=== PATIENT | male | born 1980 | race Hispanic/Latino ===

== ENCOUNTER 2016-11-06 01:34 | Emergency (ER) | payer MEDICARE, OTHER ==
[2016-11-06 01:35] VITALS: BMI 27.1
[2016-11-06 01:53] VITALS: TEMP 98.6
--- NOTE | 2016-11-06 02:08 | ED PDOC ---
Arrival/HPI <WendieOscar - Last Filed: 11/06/16 04:01> <Sandoval Muir - Last Filed: 11/06/16 04:19> - General Chief Complaint: Anxiety Time Seen by Provider: 11/06/16 01:40 - History of Present Illness Narrative History of Present Illness (Text): 11/06/16 02:06 This patient is a 36yo M w/ a PMhx of DM, Bipolar I disorder who is coming to the hospital with chest discomfort since 1am today. Patient states he was not doing anything particular, but started to get extremely anxious and "felt like he was having a heart attack" even though he has never had one in the past. Also states his left thumb went numb although it intermittently goes numb and he is unsure if they are related. Denies any fevers/chills, [place], current chest pain, SOB, abdominal pain, palpitations, N/V/D, feeling of impending doom, dysuria/freq/urg, or lower extremity pain/swelling. States he feels very anxious with all the the sounds in the ER. denies wish to hurt self or others. denies hearing voices. (Sandoval Muir) Past Medical History - Provider Review Nursing Documentation Reviewed: Yes - Travel History Have you recently traveled outside [place] w/in the past 3 mons?: No - Infectious Disease Hx of Infectious Diseases: None - Tetanus Immunization Tetanus Immunization: Unknown - Cardiac Hx Cardiac Disorders: No - Pulmonary Hx Respiratory Disorders: No - Neurological Hx Neurological Disorder: Yes Hx Seizures: Yes - HEENT Hx HEENT Disorder: No Other/Comment: astigmatism - Renal Hx Renal Disorder: No - Endocrine/Metabolic Hx Endocrine Disorders: No Hx Diabetes Mellitus Type 2: Yes - Hematological/Oncological Hx Blood Disorders: No - Integumentary Hx Dermatological Disorder: Yes Other/Comment: very minimal skin dryness and redness on both hands.. pt. claimed. side effecs of lamictal.. - Musculoskeletal/Rheumatological Hx Musculoskeletal Disorders: No Hx Falls: No - Gastrointestinal Hx Gastrointestinal Disorders: No - Genitourinary/Gynecological Hx Genitourinary Disorders: No Hx Reproductive Disorders: No - Psychiatric Hx Anxiety: Yes Hx Bipolar Disorder: Yes Hx Depression: Yes Hx Emotional Abuse: No Hx Physical Abuse: No Hx Schizophrenia: Yes Hx Substance Use: No - Past Surgical History Past Surgical History: No Previous - Surgical History Hx Appendectomy: Yes Hx Cholecystectomy: Yes - Anesthesia Hx Anesthesia Reactions: No Hx Malignant Hyperthermia: No - Suicidal Assessment Feels Threatened In Home Enviroment: No <Sandoval Muir - Last Filed: 11/06/16 04:19> Family/Social History - Physician Review Nursing Documentation Reviewed: Yes Family/Social History: No Known Family HX Smoking Status: Never Smoked Hx Alcohol Use: No Hx Substance Use: No Hx Substance Use Treatment: No <Sandoval Muir - Last Filed: 11/06/16 04:19> Allergies/Home Meds <Oscar Zuleta - Last Filed: 11/06/16 04:01> <Sandoval Muir - Last Filed: 11/06/16 04:19> Allergies/Adverse Reactions: Allergies lithium Allergy (Verified 11/06/16 01:55) ANAPHYLAXIS manic topiramate Allergy (Verified 11/06/16 02:07) ANAPHYLAXIS Home Medications: Home Meds Medication Instructions Recorded Confirmed Divalproex [Depakote ER] 500 mg PO 10/09/12 11/06/16 Benztropine [Benztropine Mesylate] 2 mg PO 11/06/16 Benztropine [Cogentin] 2 mg PO 11/06/16 11/06/16 Escitalopram [Lexapro] 40 mg PO DAILY 11/06/16 11/06/16 MetFORMIN [glucoPHAGE] 1,000 mg PO 11/06/16 11/06/16 metFORMIN [glucOPHAGE] 500 mg PO 11/06/16 11/06/16 Review of Systems - Physician Review All systems were reviewed & negative as marked: Yes - Review of Systems Constitutional: absent: Fatigue, Weight Change Eyes: absent: Vision Changes, Photophobia ENT: absent: Hearing Changes Respiratory: absent: SOB, Cough Cardiovascular: Chest Pain. absent: Palpitations, Edema, Calf Pain, ENCARNACION, Orthopnea, Syncope Gastrointestinal: absent: Abdominal Pain, Stool Changes Genitourinary Male: absent: Dysuria, Frequency Musculoskeletal: absent: Arthralgias Skin: absent: Rash, Pruritis Neurological: absent: Headache, Dizziness Endocrine: absent: Diaphoresis Hemo/Lymphatic: absent: Adenopathy Psychiatric: Anxiety. absent: Depression, Suicidal Ideation <Sandoval Muir - Last Filed: 11/06/16 04:19> Physical Exam Temperature: Afebrile Blood Pressure: Normal Pulse: Regular Respiratory Rate: Normal Appearance: Positive for: Well-Appearing, Non-Toxic, Comfortable Pain Distress: None Mental Status: Positive for: Alert and Oriented X 3 (does not make good eye contact) - Systems Exam Head: Present: Atraumatic Pupils: Present: PERRL Extroacular Muscles: Present: EOMI Conjunctiva: Present: Normal Mouth: Present: Moist Mucous Membranes Pharnyx: Present: Normal. No: ERYTHEMA Nose (External): Present: Atraumatic Neck: Present: Normal Range of Motion. No: Meningeal Signs Respiratory/Chest: Present: Clear to Auscultation, Good Air Exchange. No: Respiratory Distress Cardiovascular: Present: Regular Rate and Rhythm, Normal S1, S2, Peripheal Pulses Present. No: Murmurs, Irregular Rhythm, Tachycardic, Bradycardic, Rub, Gallop, Muffled, Other Abdomen: Present: Normal Bowel Sounds. No: Tenderness, Distention, Peritoneal Signs Back: Present: Normal Inspection. No: CVA Tenderness Upper Extremity: Present: Normal Inspection. No: Cyanosis, Edema Lower Extremity: Present: Normal Inspection. No: Edema, CALF TENDERNESS Neurological: Present: GCS=15, CN II-XII Intact, Speech Normal Skin: Present: Warm <Sandoval Muir - Last Filed: 11/06/16 04:19> Vital Signs Temp Pulse Resp BP Pulse Ox 11/06/16 01:50 98.6 F 73 17 127/70 96 Medical Decision Making <Oscar Zuleta - Last Filed: 11/06/16 04:01> <Sandoval Muir - Last Filed: 11/06/16 04:19> ED Course and Treatment: In agreement with resident note which contains more details about the patient. Patient was seen and evaluated with resident. Came up with plan and treatment together. Patient is a 36 year old male who presents to the emergency department complaining of chest pain since 1am today. Will order EKG, labs and troponin to rule out ACS and cardiac etiologies. Troponin negative. States that symptoms are better and feels comfortable to be discharged home. Patient is stable for discharge. Advised to present to emergency department for new/worsening symptoms and f/u with pmd within few days. (Oscar Zuleta) 11/06/16 02:05 EKG is NSR, no ST Segment elevations or depressions Will order CBC CMP Cardiac Enzymes Will give Aspirin 325, Xanax .5mg Only risk factor is Diabetes, does NOT have HTN, family history, smoking history patient states he feels extremely anxious right now, and is extremely anxious to be out of the house as well Reassess and dispo 11/06/16 03:54 Chemistry and CBC WNL Pending Troponins patient feels better after aspirin and xanax 11/06/16 03:57 Troponin is negative patient feels better 11/06/16 04:15 The patient is stable for d/c as per dr zuleta he has been advised to follow up if he has any worsening chest pain, shortness of breath and he was educated for warning signs of worrisome chest pain and other symptoms all questions answered and education given (Sandoval Muir) - Lab Interpretations Lab Results: 11/06/16 03:15 11/06/16 03:15 Lab Results 11/06/16 03:15: Sodium 138, Potassium 4.1, Chloride 100, Carbon Dioxide 26, Anion Gap 16, BUN 10, Creatinine 0.7, Est GFR ( Amer) > 60, Est GFR (Non- Af Amer) > 60, Random Glucose 99, Calcium 9.5, Total Bilirubin 0.4, AST 42, ALT 53, Alkaline Phosphatase 74, Lactate Dehydrogenase 349, Total Creatine Kinase 123, Troponin I < 0.01, Total Protein 7.0, Albumin 4.1, Globulin 2.9, Albumin/ Globulin Ratio 1.4 11/06/16 03:15: WBC 11.0, RBC 4.32, Hgb 12.3 L, Hct 36.4 L, MCV 84.3, MCH 28.5, MCHC 33.8, RDW 13.7, Plt Count 243, MPV 9.0, Gran % 63.4, Lymph % (Auto) 27.9, [place] % (Auto) 6.9 H, Eos % (Auto) 1.6, Baso % (Auto) 0.2, Gran # 6.99 H, Lymph # 3.1, [place] # 0.8 H, Eos # 0.2, Baso # 0.02 - Medication Orders Current Medication Orders: Discontinued Medications Alprazolam (Xanax) 0.5 mg PO STAT STA PRN Reason: Protocol Stop: 11/06/16 02:09 Last Admin: 11/06/16 03:01 Dose: 0.5 mg Comments: scanner not working Aspirin (Aspirin) 325 mg PO STAT STA Stop: 11/06/16 02:09 Last Admin: 11/06/16 03:01 Dose: 325 mg Comments: scanner not working - PA / FURNITURE DIPPER / Resident Statement MD/DO has reviewed & agrees with the documentation as recorded. MD/ has examined the patient and agrees with the treatment plan. <Oscar Zuleta - Last Filed: 11/06/16 04:01> <Sandoval Muir - Last Filed: 11/06/16 04:19> - Scribe Statement Lawanda Childers Provider Scribe Attestation: All medical record entries made by the Scribe were at my direction and personally dictated by me. I have reviewed the chart and agree that the record accurately reflects my personal performance of the history, physical exam, medical decision making, and the department course for this patient. I have also personally directed, reviewed, and agree with the discharge instructions and disposition. (Oscar Zuleta) Disposition/Present on Arrival <Oscar Zuleta - Last Filed: 11/06/16 04:01> - Present on Arrival Any Indicators Present on Arrival: No History of DVT/PE: No History of Uncontrolled Diabetes: No Urinary Catheter: No History of Decub. Ulcer: No History Surgical Site Infection Following: None - Disposition Have Diagnosis and Disposition been Completed?: Yes Disposition Time: 04:14 Patient Plan: Discharge <Sandoval Muir - Last Filed: 11/06/16 04:19> - Disposition Diagnosis: Anxiety Disposition: HOME/ ROUTINE Condition: FAIR Discharge Instructions (ExitCare): Anxiety (ED)
[2016-11-06 03:34] LABS: BASO # 0.02 K/mm3 (0.0-2.0); BASO % 0.2 % (0.0-3.0); EOS # 0.2 (0.0-0.7); EOS % 1.6 % (1.5-5.0); GRAN # 6.99 (1.4-6.5); GRAN % 63.4 % (50.0-68.0); HEMOGLOBIN 12.3 gm/dL (14.0-18.0); LYMPH # 3.1 (1.2-3.4); LYMPH % 27.9 % (22.0-35.0); MEAN CELL VOLUME 84.3 fL (80.0-105.0); MEAN CORPUSCULAR HEMOGLOBIN 28.5 pg (25.0-35.0); MEAN CORPUSCULAR HGB CONC 33.8 g/dl (31.0-37.0); MONO # 0.8 (0.1-0.6); MONO % 6.9 % (1.0-6.0); PLATELET COUNT 243 10^3/uL (120.0-450.0); RBC 4.32 10^6/uL (3.5-6.1); RED CELL DISTRIBUTION WIDTH 13.7 % (11.5-14.5)
[2016-11-06 03:47] LABS: ALB/GLOB RATIO 1.4 (1.1-1.8); ALBUMIN 4.1 g/dL (3.0-4.8); ALT/SGPT 53 U/L (7-56); AST/SGOT 42 U/L (15-59); BLOOD UREA NITROGEN 10 mg/dL (7-21); CALCIUM 9.5 mg/dL (8.4-10.5); GFR AFRICAN-AMERICAN > 60; GFR NON-AFRICAN AMERICAN > 60
[2016-11-06 03:54] LABS: TROPONIN I < 0.01 ng/mL
[2016-11-06 05:00] VITALS: BP 128/78; PULSE 79; RESP 16; O2SAT 99
--- NOTE | 2016-11-06 16:47 | CARD ---
APPROVED REPORT EKG Measurement Heart [id number] <Conclusion> Normal sinus rhythm Possible Left atrial enlargement Borderline ECG
== END 2016-11-06 04:30 | disposition home or self-care (01) ==
LOC: ED 01:34
DX: F41.9 Anxiety disorder, unspecified (principal)

== ENCOUNTER 2016-12-18 19:52 | Inpatient (IN) | payer MEDICARE, OTHER ==
[2016-12-18 19:53] VITALS: BMI 27.1
[2016-12-18] MEDS ORDERED: Sodium Chloride 0.9% 1,000 ML IV STA (20:08)
--- NOTE | 2016-12-18 20:11 | ED PDOC ---
Arrival/HPI - General Chief Complaint: Syncope Time Seen by Provider: 12/18/16 20:00 Historian: Patient, Parent - History of Present Illness Narrative History of Present Illness (Text): 12/18/16 20:08 Pt. to emergency depaP Bipolar Disorder,NIDDM, to emergency department BIBA following a syncopal episode at home.Pt. states he has been having diarrhea for the past few days.No vomiting.No fever or chills.Denies any chest pain or shortness of breath.Mother states he was walking to the kitchen when he suddenly collapsed.No head trauma.Denies any neck or back pain. Past Medical History - Provider Review Nursing Documentation Reviewed: Yes - Travel History Have you recently traveled outside [place] w/in the past 3 mons?: No - Infectious Disease Hx of Infectious Diseases: None - Tetanus Immunization Tetanus Immunization: Unknown - Cardiac Hx Cardiac Disorders: No - Pulmonary Hx Respiratory Disorders: No - Neurological Hx Neurological Disorder: Yes Hx Seizures: Yes - HEENT Hx HEENT Disorder: No Other/Comment: astigmatism - Renal Hx Renal Disorder: No - Endocrine/Metabolic Hx Endocrine Disorders: No Hx Diabetes Mellitus Type 2: Yes - Hematological/Oncological Hx Blood Disorders: No - Integumentary Hx Dermatological Disorder: Yes Other/Comment: very minimal skin dryness and redness on both hands.. pt. claimed. side effecs of lamictal.. - Musculoskeletal/Rheumatological Hx Musculoskeletal Disorders: No Hx Falls: No - Gastrointestinal Hx Gastrointestinal Disorders: No - Genitourinary/Gynecological Hx Genitourinary Disorders: No Hx Reproductive Disorders: No - Psychiatric Hx Anxiety: Yes Hx Bipolar Disorder: Yes Hx Depression: Yes Hx Emotional Abuse: No Hx Physical Abuse: No Hx Schizophrenia: Yes Hx Substance Use: No - Past Surgical History Past Surgical History: No Previous - Surgical History Hx Appendectomy: Yes Hx Cholecystectomy: Yes - Anesthesia Hx Anesthesia Reactions: No Hx Malignant Hyperthermia: No - Suicidal Assessment Feels Threatened In Home Enviroment: No Family/Social History - Physician Review Nursing Documentation Reviewed: Yes Family/Social History: Diabetes Smoking Status: Never Smoked Hx Alcohol Use: No Hx Substance Use: No Hx Substance Use Treatment: No Allergies/Home Meds Allergies/Adverse Reactions: Allergies lithium Allergy (Verified 12/18/16 20:43) ANAPHYLAXIS manic topiramate Allergy (Verified 12/18/16 20:43) ANAPHYLAXIS Home Medications: Home Meds Medication Instructions Recorded Confirmed Divalproex [Depakote ER] 500 mg PO HS 10/09/12 12/18/16 Benztropine [Benztropine Mesylate] 2 mg PO DAILY 11/06/16 12/18/16 Benztropine [Cogentin] 2 mg PO 11/06/16 12/18/16 Escitalopram [Lexapro] 40 mg PO DAILY 11/06/16 12/18/16 MetFORMIN [glucoPHAGE] 1,000 mg PO 11/06/16 12/18/16 metFORMIN [glucOPHAGE] 500 mg PO 11/06/16 12/18/16 Review of Systems - Review of Systems Constitutional: Normal Eyes: Normal ENT: Normal Respiratory: Normal Cardiovascular: Normal Gastrointestinal: Normal Genitourinary Male: Normal Musculoskeletal: Normal Skin: Normal Neurological: Other (syncope) Endocrine: Normal Hemo/Lymphatic: Normal Psychiatric: Normal Physical Exam Vital Signs Pulse Resp BP Pulse Ox 12/18/16 23:06 80 20 116/70 98 12/18/16 22:41 87 17 91/50 L 100 Temperature: Afebrile Blood Pressure: Normal Pulse: Regular Respiratory Rate: Normal Appearance: Positive for: Well-Appearing, Non-Toxic, Comfortable Pain Distress: None Mental Status: Positive for: Alert and Oriented X 3 - Systems Exam Head: Present: Atraumatic, Normocephalic Pupils: Present: PERRL Extroacular Muscles: Present: EOMI Conjunctiva: Present: Normal Ears: Present: NORMAL TM Mouth: Present: Moist Mucous Membranes Pharnyx: Present: Normal Neck: Present: Normal Range of Motion Respiratory/Chest: Present: Clear to Auscultation, Good Air Exchange. No: Respiratory Distress, Accessory Muscle Use Cardiovascular: Present: Regular Rate and Rhythm, Normal S1, S2. No: Murmurs Abdomen: Present: Normal Bowel Sounds. No: Tenderness, Distention, Peritoneal Signs Back: Present: Normal Inspection Upper Extremity: Present: Normal Inspection. No: Cyanosis, Edema Lower Extremity: Present: Normal Inspection. No: Edema Neurological: Present: GCS=15, CN II-XII Intact, Speech Normal, Motor Func Grossly Intact, Normal Sensory Function Skin: Present: Warm, Dry, Normal Color. No: Rashes Psychiatric: Present: Alert, Oriented x 3, Normal Insight, Normal Concentration Medical Decision Making ED Course and Treatment: Impression: A 36 year old male who presents to the emergency department for evaluation following a syncopal episode prior to arrival. Plan: -- EKG -- Labs, cardiac enzymes -- CT Head -- CXR -- IV Fluids -- Reassess and disposition Progress Notes: CT Head shows: No definitive acute intracranial abnormality. CXR interpreted by me: No acute processes EKG interpreted by me: NSR @ 76 bpm. wavy baseline. non-specific ST/T changes. 12/18/16 23:26 Case discussed with who is aware and agrees with the plan to observe patient at telemetry for syncope. Accepts patient under her service with and Dr. Coker on consult. Patient is aware and agrees with the plan. - Lab Interpretations Lab Results: 12/18/16 22:00 12/18/16 22:00 Lab Results 12/18/16 22:00: WBC 12.4 H, RBC 4.94, Hgb 14.3, Hct 41.9 L, MCV 84.8, MCH 28.9, MCHC 34.1, RDW 14.1, Plt Count 249, MPV 9.8 12/18/16 22:00: Sodium 141, Potassium 4.2, Chloride 104, Carbon Dioxide 24, Anion Gap 17, BUN 11, Creatinine 0.7, Est GFR ( Amer) > 60, Est GFR (Non- Af Amer) > 60, Random Glucose 104, Calcium 9.9, Total Bilirubin 0.6, AST 98 H, ALT 161 H, Alkaline Phosphatase 103, Lactate Dehydrogenase 469, Total Creatine Kinase 62, Troponin I < 0.01, Total Protein 7.6, Albumin 4.5, Globulin 3.1, Albumin/Globulin Ratio 1.5 12/18/16 22:00: PT 10.2, INR 0.94, APTT 26.0 I have reviewed the lab results: Yes - RAD Interpretation Narrative RAD Interpretations (Text): EXAM: CT Head Without Intravenous Contrast Dictated and Authenticated by: Jemal Capone MD FINDINGS: Artifacts: There is motion artifact on the study. There is a focus of increased density involving the left frontal cortex on series 5 image 20. This is likely artifactual. Brain: The white-musa differentiation is preserved demonstrating no acute territorial type infarct. No definitive acute intracranial hemorrhage is seen. There are calcifications within the globus pallidus bilaterally, which are likely physiologic. Midline shift: There is no midline shift. Ventricles: No ventriculomegaly. Bones/joints: The calvarium demonstrates no evidence for a depressed fracture. Soft tissues: No acute abnormality. Sinuses: Unremarkable as visualized. No acute sinusitis. Mastoid air cells: No mastoid effusion. IMPRESSION: 1. No definitive acute intracranial abnormality. 2. Incidental/non-acute findings are described above. Radiology Orders: 12/18/16 20:06 HEAD W/O CONTRAST [CT] Stat 12/18/16 20:07 CHEST PORTABLE [RAD] Stat Watch Assembly Instructor: Radiologist - Medication Orders Current Medication Orders: Discontinued Medications Sodium Chloride (Sodium Chloride 0.9%) 1,000 mls @ 999 mls/hr IV .Q1H1M STA Stop: 12/18/16 21:08 Disposition/Present on Arrival - Present on Arrival Any Indicators Present on Arrival: No History of DVT/PE: No History of Uncontrolled Diabetes: No Urinary Catheter: No History of Decub. Ulcer: No History Surgical Site Infection Following: None - Disposition Have Diagnosis and Disposition been Completed?: Yes Diagnosis: Syncope Disposition: HOSPITALIZED Disposition Time: 23:15 Patient Plan: Observation Patient Problems: Current Active Problems Problem Status Onset Syncope Acute Condition: STABLE
[2016-12-18 22:27] LABS: HEMATOCRIT 41.9 % (42.0-52.0); MEAN CELL VOLUME 84.8 fl (80.0-105.0); MEAN CORPUSCULAR HEMOGLOBIN 28.9 pg (25.0-35.0); MEAN CORPUSCULAR HGB CONC 34.1 g/dl (31.0-37.0); MEAN PLATELET VOLUME 9.8 fl (7.0-11.0); RED CELL DISTRIBUTION WIDTH 14.1 % (11.5-14.5); WHITE BLOOD COUNT 12.4 10^3/ul (4.5-11.0)
[2016-12-18 22:36] LABS: ALB/GLOB RATIO 1.5 (1.1-1.8); ALKALINE PHOSPHATASE 103 U/L (38-126); ALT/SGPT 161 U/L (7-56); AST/SGOT 98 U/L (17-59); BILIRUBIN,TOTAL 0.6 mg/dL (0.2-1.3); BLOOD UREA NITROGEN 11 mg/dL (7-21); CALCIUM 9.9 mg/dL (8.4-10.5); CARBON DIOXIDE 24 mmol/L (21-33); CHLORIDE 104 mmol/L (98-107); GFR AFRICAN-AMERICAN > 60; GLUCOSE,RANDOM 104 mg/dL (70-110); POTASSIUM 4.2 mmol/L (3.6-5.0); SODIUM 141 mmol/L (132-148); TOTAL PROTEIN 7.6 g/dL (5.8-8.3)
[2016-12-18 22:37] LABS: INR 0.94 (0.93-1.08)
--- NOTE | 2016-12-18 22:38 | CT ---
EXAM: CT Head Without Intravenous Contrast EXAM DATE/TIME: 12/18/2016 8:06 PM CLINICAL HISTORY: The patient age is 36 years old and is male; Signs and symptoms; Syncope and collapse Facility exam id and description: Ct heads head w/o contrast TECHNIQUE: Axial computed tomography images of the head/brain without intravenous contrast. All CT scans at this facility use one or more dose reduction techniques, viz.: automated exposure control; ma/kV adjustment per patient size (including targeted exams where dose is matched to indication; i.e. head); or iterative reconstruction technique. COMPARISON: No relevant prior studies available. FINDINGS: Artifacts: There is motion artifact on the study. There is a focus of increased density involving the left frontal cortex on series 5 image 20. This is likely artifactual. Brain: The white-musa differentiation is preserved demonstrating no acute territorial type infarct. No definitive acute intracranial hemorrhage is seen. There are calcifications within the globus pallidus bilaterally, which are likely physiologic. Midline shift: There is no midline shift. Ventricles: No ventriculomegaly. Bones/joints: The calvarium demonstrates no evidence for a depressed fracture. Soft tissues: No acute abnormality. Sinuses: Unremarkable as visualized. No acute sinusitis. Mastoid air cells: No mastoid effusion. IMPRESSION: 1. No definitive acute intracranial abnormality. 2. Incidental/non-acute findings are described above.
[2016-12-18 22:47] LABS: TROPONIN I < 0.01 ng/mL
[2016-12-19] MEDS ORDERED: Bismuth Subsalicylate 262 mg/15 ml Sus (240 ml) PO ONE (02:08)
--- NOTE | 2016-12-19 02:11 | CP.PCM.PN ---
Subjective - Date & Time of Evaluation Date of Evaluation: 12/19/16 Time of Evaluation: 02:09 - Subjective Subjective: Patient was seen at bedside because he requested something for sleep and diarrhoea. Has no other complaints. Denies abdominal pain, vomiting. Medical record was reviewed. This 36 year old male was admitted after he had a syncopal episode.Also has been having diarrhoea for past few days. Has PMH of NIDDM, bipolar disorder, seizure, anxiety, schizophrenia, appendectomy, cholecystectomy. Objective - Vital Signs/Intake and Output Vital Signs (last 24 hours): Temp Pulse Resp BP Pulse Ox 98.1 F 71 18 120/89 99 12/19/16 01:17 12/19/16 01:17 12/19/16 01:35 12/19/16 01:17 12/19/16 01:35 - Medications Medications: Current Medications Bismuth Subsalicylate (Pepto-Bismol) 262 mg PO ONCE ONE Stop: 12/19/16 02:09 Diphenhydramine HCl (Benadryl) 25 mg PO STAT STA Stop: 12/19/16 02:08 - Labs Labs: PT 10.2 Seconds (9.9-11.8) 12/18/16 22:00 INR 0.94 (0.93-1.08) 12/18/16 22:00 APTT 26.0 Seconds (23.7-30.8) 12/18/16 22:00 - Constitutional Appears: Well, No Acute Distress - Head Exam Head Exam: ATRAUMATIC, NORMAL INSPECTION, NORMOCEPHALIC - Eye Exam Eye Exam: Normal appearance - ENT Exam ENT Exam: Normal External Ear Exam - Neck Exam Neck Exam: Normal Inspection - Respiratory Exam Respiratory Exam: NORMAL BREATHING PATTERN - Cardiovascular Exam Cardiovascular Exam: absent: JVD - GI/Abdominal Exam GI & Abdominal Exam: absent: Distended - Rectal Exam Rectal Exam: Deferred - Exam Additional comments: Deferred. - Extremities Exam Extremities Exam: Normal Inspection - Back Exam Back Exam: NORMAL INSPECTION - Neurological Exam Neurological Exam: Alert, Oriented x3 - Psychiatric Exam Psychiatric exam: Normal Affect, Normal Mood - Skin Skin Exam: Normal Color Assessment and Plan - Assessment and Plan (Free Text) Assessment: Adustment insomnia. Diarrhoea. NIDDM. Depression. Schizophrenia. Anxiety. History of seizure. Obesity. Plan: Kappectate 30 CC po stat. Benadryl 50 mg PO stat. Continue present management.
--- NOTE | 2016-12-19 08:51 | RAD ---
HISTORY: syncope COMPARISON: 01/06/2013 FINDINGS: LUNGS: No active pulmonary disease. PLEURA: No significant pleural effusion identified, no pneumothorax apparent. CARDIOVASCULAR: Normal. OSSEOUS STRUCTURES: No significant abnormalities. VISUALIZED UPPER ABDOMEN: Normal. OTHER FINDINGS: None. IMPRESSION: No active disease. No interval pathology noted
--- NOTE | 2016-12-19 11:16 | CON ---
DATE: 12/19/2016 REASON FOR CONSULTATION: Syncope, cardiac evaluation. BRIEF CLINICAL HISTORY: This is a 36-year-old male with a past medical history significant for psychiatric disorder, bipolar disorder, depression, schizophrenia, admitted to the [facility] after syncopal episode at home. The patient states that he has had diarrhea for five days and not eating since two to three days. Yesterday, he had yogurt for the lunch only and when he was going to the bedroom to kitchen to have a dinner with mom suddenly he passed out. Denies any chest pain or shortness of breath or any palpitation. PAST MEDICAL HISTORY: Significant for history of psychiatric disorder, bipolar disorder, schizophrenia, questionable history of grand mal seizure in 2012. PERSONAL HISTORY: Unmarried. No children. Live with mom. Denies smoking. Denies any history of alcohol abuse. He is on disability. CURRENT MEDICATIONS: The patient is taking at home metformin 5 mg daily, Lexapro, Depakote, Cogentin, and benztropine. REVIEW OF SYSTEMS: As per HPI. PHYSICAL EXAMINATION VITAL SIGNS: Temperature afebrile, heart rate 20, blood pressure 117/63. HEENT: PERRLA. Extraocular muscles intact. NECK: Supple. No carotid bruits. No thyromegaly. CHEST: Clear to auscultation. HEART: S1 and S2 and regular. ABDOMEN: Soft. EXTREMITIES: Clubbing, cyanosis negative. LABORATORY DATA: EKG showed normal sinus rate of 78, left atrial abnormality. Blood workup shows WBC 12.4, hemoglobin 19.3, hematocrit 41.9, platelet count 249. Chemistries show sodium 141, potassium 4.2, chloride 104, carbon dioxide 24, anion gap of 11, BUN of 17, creatinine of 0.7. Troponin is 0.01 x2 negative. IMPRESSION: This is a 36-year-old male with past medical history significant for obesity, diabetes, psychiatric disorder, bipolar disorder, questionable history of grand mal seizure, history of schizophrenia who had a diarrhea for five days, not eating, doing probably most likely secondary to orthostatic hypotension, admitted with syncopal episode most likely secondary to dehydration. RECOMMENDATION: Start IV fluids 100 mL of normal saline for 1 liter followed by 50 mL of normal saline from 7 p.m. We will check orthostatic hypotension. We will get echo to rule out structural heart disease. We will get lipid profile, TSH, and hemoglobin A1c. Also we will add on magnesium level. We will follow with you. Thank you Dr. Felipe for providing the opportunity in taking care of Simón Benson and also get echo to rule out his structural heart disease. We will order postural hypotension and will check for orthostatic hypotension. So far no evidence of acute CO or coronary event. Michelle Coker MD
[2016-12-19] MEDS: Insulin Reg-LOW-Coverage SC SCH ×3 (11:30→21:53)
[2016-12-19] MEDS: Sodium Chloride 0.9% 1,000 ML IV SCH ×4 (11:50→21:57)
--- NOTE | 2016-12-19 12:07 | CP.PCM.CON ---
<[facility] - Last Filed: 12/19/16 13:49> History of Present Illness - History of Present Illness History of Present Illness: GI consult note: 36 M with pmh of schizophrenia, bipolar, and depression presents following a syncopal episode. He states that he remembers going to get a yogurt from his kitchen which he than passed out. He also states that for the past 5 days he has been having poor oral intake and 3-4 episodes of non bloody diarrhea per day. Pt states state that he ate out a few days ago and its possible his symptoms are attributed to that. He states that food makes the diarrhea worse. Pt denies this ever occurring before. No recent travels. No sick contacts. Pt denies any fever, chills, headache, dizziness, sob, chest pain, abd pain, nausea , vomiting, urinary changes. 12 Point ROS was performed and is negative other than stated above. PMH: Psych hx including schizophrenia, bipolar, depression PSH: cholecystectomy ALL: [place], Topiramate, Geodon FH: denies SH: not and lives with his mom; Denies any drinking, smoking, or drugs Endo hx: denies Review of Systems - Review of Systems All systems: reviewed and no additional remarkable complaints except Past Patient History - Infectious Disease Hx of Infectious Diseases: None - Tetanus Immunizations Tetanus Immunization: Unknown - Past Social History Smoking Status: Never Smoked - CARDIAC Hx Hypertension: No (Hypotension) - PULMONARY Hx Respiratory Disorders: No - NEUROLOGICAL Hx Seizures: Yes (Grand mal seizure in 2013) - HEENT Hx HEENT Problems: No Other/Comment: astigmatism - RENAL Hx Chronic Kidney Disease: No - ENDOCRINE/METABOLIC Hx Diabetes Mellitus Type 2: Yes - HEMATOLOGICAL/ONCOLOGICAL Hx Blood Disorders: No - INTEGUMENTARY Hx Dermatological Problems: Yes Other/Comment: very minimal skin dryness and redness on both hands.. pt. claimed. side effecs of lamictal.. - MUSCULOSKELETAL/RHEUMATOLOGICAL Hx Falls: Yes (Passed out at home) - GASTROINTESTINAL Hx Gastrointestinal Disorders: No - GENITOURINARY/GYNECOLOGICAL Hx Genitourinary Disorders: No Hx Reproductive Disorders: No - PSYCHIATRIC Hx Psychophysiologic Disorder: Yes (Failure to thrive, OCD) Hx Anxiety: Yes Hx Bipolar Disorder: Yes Hx Depression: Yes Hx Schizophrenia: Yes - SURGICAL HISTORY Hx Appendectomy: Yes - ANESTHESIA Hx Anesthesia Reactions: No Hx Malignant Hyperthermia: No Meds Allergies/Adverse Reactions: Allergies Allergy/AdvReac Type Severity Reaction Status Date / Time lithium Allergy ANAPHYLAXIS Verified 12/18/16 20:43 topiramate Allergy ANAPHYLAXIS Verified 12/18/16 20:43 - Medications Medications: Current Medications Benztropine Mesylate (Cogentin) 2 mg PO DAILY [facility] Last Admin: 12/19/16 11:52 Dose: 2 mg Divalproex Sodium (Depakote Er(Once Daily)) 500 mg PO [facility] PRN Reason: Protocol Escitalopram Oxalate (Lexapro) 40 mg PO DAILY [facility] Last Admin: 12/19/16 11:48 Dose: 40 mg Famotidine (Pepcid) 40 mg PO HS [facility] Sodium Chloride (Sodium Chloride 0.9%) 1,000 mls @ 100 mls/hr IV .Q10H [facility] Last Admin: 12/19/16 11:50 Dose: 100 mls/hr Sodium Chloride (Sodium Chloride 0.9%) 1,000 mls @ 50 mls/hr IV .Q20H [facility] Stop: 12/20/16 23:59 Insulin Human Regular (Humulin R Low) 0 units SC [facility] PRN Reason: Protocol Metformin HCl (Glucophage) 1,000 mg PO [facility] Physical Exam - Head Exam Head Exam: ATRAUMATIC, NORMOCEPHALIC - Eye Exam Eye Exam: EOMI, PERRL - ENT Exam ENT Exam: Mucous Membranes Moist - Respiratory Exam Respiratory Exam: Clear to Auscultation Bilateral. absent: Rales, Wheezes - Cardiovascular Exam Cardiovascular Exam: REGULAR RHYTHM, RRR, +S1, +S2 - GI/Abdominal Exam GI & Abdominal Exam: Normal Bowel Sounds, Soft. absent: Tenderness - Extremities Exam Extremities exam: Negative for: calf tenderness, pedal edema - Neurological Exam Neurological exam: Alert, CN II-XII Intact, Oriented x3 - Psychiatric Exam Psychiatric exam: Normal Affect, Normal Mood - Skin Skin Exam: Dry, Intact, Normal Color, Warm Results - Vital Signs Recent Vital Signs: Last Vital Signs Temp 98.7 F 12/19/16 06:00 Pulse 78 12/19/16 06:00 Resp 20 12/19/16 06:00 BP 117/63 12/19/16 06:00 Pulse Ox 94 L 12/19/16 06:00 - Labs Result Diagrams: 12/18/16 22:00 12/18/16 22:00 Labs: Laboratory Results - last 24 hr 12/19/16 11:44 POC Glucose (mg/dL) 104 Assessment & Plan - Assessment and Plan (Free Text) Assessment: 36 M with pmh of schizophrenia, bipolar, and depression presents following 5 days of diarrhea and a syncopal episode. - Continue heart healthy diet as tolerated - Will order CT Abd & Pelvis with IV contrast - F/u Stool infectious work up - Avoid medication which will exacerbate diarrhea - IV fluids - Cont Pepcid 40mg HS - Medical management as per primary team - F/u cardiology rec and work up Case and plan was reviewed and discussed with GI team. <Ansley BENJAMIN,Tone - Last Filed: 12/19/16 16:30> Meds - Medications Medications: Current Medications Benztropine Mesylate (Cogentin) 2 mg PO DAILY [facility] Last Admin: 12/19/16 11:52 Dose: 2 mg Divalproex Sodium (Depakote Er(Once Daily)) 500 mg PO HS [facility] PRN Reason: Protocol Escitalopram Oxalate (Lexapro) 40 mg PO DAILY [facility] Last Admin: 12/19/16 11:48 Dose: 40 mg Famotidine (Pepcid) 40 mg PO HS [facility] Sodium Chloride (Sodium Chloride 0.9%) 1,000 mls @ 100 mls/hr IV .Q10H [facility] Last Admin: 12/19/16 11:50 Dose: 100 mls/hr Sodium Chloride (Sodium Chloride 0.9%) 1,000 mls @ 50 mls/hr IV .Q20H [facility] Stop: 12/20/16 23:59 Insulin Human Regular (Humulin R Low) 0 units SC ACHS [facility] PRN Reason: Protocol Last Admin: 12/19/16 11:30 Dose: Not Given Metformin HCl (Glucophage) 1,000 mg PO HS [facility] Results - Vital Signs Recent Vital Signs: Last Vital Signs Temp 98.9 F 12/19/16 12:00 Pulse 69 12/19/16 14:00 Resp 18 12/19/16 12:00 BP 100/54 L 12/19/16 12:00 Pulse Ox 94 L 12/19/16 06:00 - Labs Result Diagrams: 12/18/16 22:00 12/18/16 22:00 Labs: Laboratory Results - last 24 hr 12/19/16 16:20 POC Glucose (mg/dL) 110 Attending/Attestation - Attestation I have personally seen and examined this patient.: Yes I have fully participated in the care of the patient.: Yes I have reviewed all pertinent clinical information: Yes Notes (Text): 12/19/16 16:28 Patient seen and examined at bedside with GI fellow and center medical and lab director. This is a 36 year old M with PMH of schizophrenia, bipolar, and depression presents following 5 days of diarrhea and a syncopal episode. Cardiac and neurology work up in progress. Prudent to send stool infectious work up. No s/s of IBD. Will get CT abdomen and pelvis with IV contrast. Diarrhea non bloody. send TSH levels. Check medication list and avoid medications that increase motility. Avoid bismuth products.
--- NOTE | 2016-12-19 14:24 | CT ---
PROCEDURE: CT Abdomen and Pelvis with contrast HISTORY: Diarrhea COMPARISON: None. TECHNIQUE: Contrast dose: 150 cc of Omni 350 Radiation dose: Total exam DLP = 1346 mGy-cm. This CT exam was performed using one or more of the following dose reduction techniques: Automated exposure control, adjustment of the mA and/or kV according to patient size, and/or use of iterative reconstruction technique. FINDINGS: LOWER THORAX: Unremarkable. LIVER: Unremarkable. No gross lesion or ductal dilatation. GALLBLADDER AND BILE DUCTS: Gallbladder removed PANCREAS: Unremarkable. No gross lesion or ductal dilatation. SPLEEN: Unremarkable. ADRENALS: Unremarkable. No mass. KIDNEYS AND URETERS: Unremarkable. No hydronephrosis. No solid mass. VASCULATURE: Unremarkable. No aortic aneurysm. BOWEL: Unremarkable. No obstruction. No gross mural thickening. APPENDIX: Normal appendix. PERITONEUM: Unremarkable. No free fluid. No free air. LYMPH NODES: Unremarkable. No enlarged lymph nodes. BLADDER: Unremarkable. REPRODUCTIVE: Unremarkable. BONES: No acute fracture. OTHER FINDINGS: None. IMPRESSION: No acute intra-abdominal findings. No evidence of colitis.
--- NOTE | 2016-12-19 15:44 | CP.PCM.CON ---
Addendum entered and electronically signed by Benito Leblanc DO 12/19/16 15:51: Correction to Assessment: This is a 36 yo M with PMH of schizophrenia, bipolar, depression, and DM on metformin who presents after witnessed syncopal episode. As per patient, he has little memory of the event, before and after, but remembers starting to feel lightheaded/dizzy prior to LOC. His syncope is most likely vasovagal vs orthostatic superimposed on dehydration 2/2 poor PO intake and frequent diarrhea. Due to volume depleted status (2/2 diarrhea), likely had transient cerebral hypoperfusion. After being given 1L bolus of NS in the ED, SBP improved by > 20, and symptoms resolved. Original Note: <Benito Leblanc - Last Filed: 12/19/16 15:29> History of Present Illness - History of Present Illness History of Present Illness: Neurology consult note for Dr. Cano service Consulted for: syncope HPI: This is a 36 yo M with PMH of schizophrenia, bipolar, depression , and DM on metformin who presents after witnessed syncopal episode. As per patient, he has little memory of the event, before and after, but remembers starting to feel lightheaded/dizzy prior to LOC. He denies anything specific prompting the symptoms (he did not suddenly stand up, exert himself, or have an immediately preceding episode of emesis/diarrhea). As per information provided by family in the ED, patient lost consciousness, collapsed to the floor, and remained unresponsive for several minutes before coming to. Denies head trauma. Admits to recently having multiple episodes of diarrhea per day for the last 3-4 days, non-bloody. Denies emesis, but admits to poor PO intake, and minimal fluid intake to make up for volume loss from the diarrhea. Denies similar episodes in the past; attributes the diarrhea to his metformin. Reports normal sugar checks at home prior to this episode. All remaining ROS in 12-point system review negative. PMH: as above PSH: cholecystectomy SHx: denies tobacco/alochol/illicits, lives with mother FHx: denies PMD: Dr. Felipe Review of Systems - Review of Systems All systems: reviewed and no additional remarkable complaints except (as per HPI ) Past Patient History - Infectious Disease Hx of Infectious Diseases: None - Tetanus Immunizations Tetanus Immunization: Unknown - Past Social History Smoking Status: Never Smoked - CARDIAC Hx Hypertension: No (Hypotension) - PULMONARY Hx Respiratory Disorders: No - NEUROLOGICAL Hx Seizures: Yes (Grand mal seizure in 2013) - HEENT Hx HEENT Problems: No Other/Comment: astigmatism - RENAL Hx Chronic Kidney Disease: No - ENDOCRINE/METABOLIC Hx Diabetes Mellitus Type 2: Yes - HEMATOLOGICAL/ONCOLOGICAL Hx Blood Disorders: No - INTEGUMENTARY Hx Dermatological Problems: Yes Other/Comment: very minimal skin dryness and redness on both hands.. pt. claimed. side effecs of lamictal.. - MUSCULOSKELETAL/RHEUMATOLOGICAL Hx Falls: Yes (Passed out at home) - GASTROINTESTINAL Hx Gastrointestinal Disorders: No - GENITOURINARY/GYNECOLOGICAL Hx Genitourinary Disorders: No Hx Reproductive Disorders: No - PSYCHIATRIC Hx Psychophysiologic Disorder: Yes (Failure to thrive, OCD) Hx Anxiety: Yes Hx Bipolar Disorder: Yes Hx Depression: Yes Hx Schizophrenia: Yes - SURGICAL HISTORY Hx Appendectomy: Yes - ANESTHESIA Hx Anesthesia Reactions: No Hx Malignant Hyperthermia: No Meds Allergies/Adverse Reactions: Allergies Allergy/AdvReac Type Severity Reaction Status Date / Time lithium Allergy ANAPHYLAXIS Verified 12/18/16 20:43 topiramate Allergy ANAPHYLAXIS Verified 12/18/16 20:43 - Medications Medications: Current Medications Benztropine Mesylate (Cogentin) 2 mg PO DAILY [facility] Last Admin: 12/19/16 11:52 Dose: 2 mg Divalproex Sodium (Depakote Er(Once Daily)) 500 mg PO [facility] PRN Reason: Protocol Escitalopram Oxalate (Lexapro) 40 mg PO DAILY [facility] Last Admin: 12/19/16 11:48 Dose: 40 mg Famotidine (Pepcid) 40 mg PO [facility] Sodium Chloride (Sodium Chloride 0.9%) 1,000 mls @ 100 mls/hr IV .Q10H [facility] Last Admin: 12/19/16 11:50 Dose: 100 mls/hr Sodium Chloride (Sodium Chloride 0.9%) 1,000 mls @ 50 mls/hr IV .Q20H [facility] Stop: 12/20/16 23:59 Insulin Human Regular (Humulin R Low) [address] [facility] PRN Reason: Protocol Last Admin: 12/19/16 11:30 Dose: Not Given Metformin HCl (Glucophage) 1,000 mg PO [facility] Physical Exam - Constitutional Appears: Well, Non-toxic, No Acute Distress, Other (Lethargic/Slow to respond) - Head Exam Head Exam: ATRAUMATIC, NORMAL INSPECTION, NORMOCEPHALIC - Eye Exam Eye Exam: EOMI, Normal appearance, PERRL. absent: Conjunctival injection, Scleral icterus Pupil Exam: NORMAL ACCOMODATION, PERRL. absent: Fixed, Irregular, Unequal - ENT Exam ENT Exam: Mucous Membranes Dry - Neck Exam Neck exam: Positive for: Full Rom, Normal Inspection. Negative for: Lymphadenopathy, Tenderness, Thyromegaly - Respiratory Exam Respiratory Exam: Decreased Breath Sounds (mild decreased breath sounds in all garvin, likely due to body habitus), Clear to Auscultation Bilateral, NORMAL BREATHING PATTERN. absent: Accessory Muscle Use, Chest Wall Tenderness, Rales, Rhonchi, Wheezes - Cardiovascular Exam Cardiovascular Exam: REGULAR RHYTHM, RRR, +S1, +S2. absent: Bradycardia, Tachycardia, Irregular Rhythm, JVD, +S4 - GI/Abdominal Exam GI & Abdominal Exam: Normal Bowel Sounds, Soft. absent: Diminished Bowel Sounds , Distended, Firm, Hyperactive Bowel Sounds, Hypoactive Bowel Sounds, Rigid, Tenderness - Extremities Exam Extremities exam: Positive for: normal inspection. Negative for: calf tenderness, pedal edema, tenderness, pedal pulses present - Back Exam Back exam: absent: CVA tenderness (L), CVA tenderness (R) - Neurological Exam Neurological exam: Alert, CN II-XII Intact, Oriented x3 - Psychiatric Exam Additional comments: Flat/slowed affect, unclear if lethargic vs depressive affect or hypoactive bipolar - Skin Skin Exam: Dry, Intact, Normal Color, Warm Results - Vital Signs Recent Vital Signs: Last Vital Signs Temp 98.9 F 12/19/16 12:00 Pulse 69 12/19/16 14:00 Resp 18 12/19/16 12:00 BP 100/54 L 12/19/16 12:00 Pulse Ox 94 L 12/19/16 06:00 - Labs Result Diagrams: 12/18/16 22:00 12/18/16 22:00 Assessment & Plan - Assessment and Plan (Free Text) Assessment: This is a 36 yo M with PMH of schizophrenia, bipolar, depression, and DM on metformin who presents after witnessed syncopal episode. As per patient, he has little memory of the event, before and after, but remembers starting to feel lightheaded/dizzy prior to LOC. His syncope is most likely vasovagal superimposed on dehydration 2/2 poor PO intake and frequent diarrhea. After being given 1L bolus of NS in the ED, SBP improved by > 20. No neurological component to syncopal episode appreciated. Plan: 1) Encourage PO intake 2) Avoid further hypotensive episodes, maintain SBP > 110 3) Orthostatics 4) PT/OT assessment Patient seen, reviewed, and discussed with attending, Dr. Cano <Sohail Cano - Last Filed: 12/19/16 16:32> Meds - Medications Medications: Current Medications Benztropine Mesylate (Cogentin) 2 mg PO DAILY [facility] Last Admin: 12/19/16 11:52 Dose: 2 mg Divalproex Sodium (Depakote Er(Once Daily)) 500 mg PO HS [facility] PRN Reason: Protocol Escitalopram Oxalate (Lexapro) 40 mg PO DAILY [facility] Last Admin: 12/19/16 11:48 Dose: 40 mg Famotidine (Pepcid) 40 mg PO HS [facility] Sodium Chloride (Sodium Chloride 0.9%) 1,000 mls @ 100 mls/hr IV .Q10H [facility] Last Admin: 12/19/16 11:50 Dose: 100 mls/hr Sodium Chloride (Sodium Chloride 0.9%) 1,000 mls @ 50 mls/hr IV .Q20H [facility] Stop: 12/20/16 23:59 Insulin Human Regular (Humulin R Low) 0 units SC A[facility]S [facility] PRN Reason: Protocol Last Admin: 12/19/16 11:30 Dose: Not Given Metformin HCl (Glucophage) 1,000 mg PO HS [facility] Results - Vital Signs Recent Vital Signs: Last Vital Signs Temp 98.9 F 12/19/16 12:00 Pulse 69 12/19/16 14:00 Resp 18 12/19/16 12:00 BP 100/54 L 12/19/16 12:00 Pulse Ox 94 L 12/19/16 06:00 - Labs Result Diagrams: 12/18/16 22:00 12/18/16 22:00 Labs: Laboratory Results - last 24 hr 12/19/16 16:20 POC Glucose (mg/dL) 110 Attending/Attestation - Attestation I have personally seen and examined this patient.: Yes I have fully participated in the care of the patient.: Yes I have reviewed all pertinent clinical information: Yes
--- NOTE | 2016-12-19 17:54 | CARD ---
APPROVED REPORT EKG Measurement Heart [id number] <Conclusion> Normal sinus rhythm Possible Left atrial enlargement Borderline ECG
[2016-12-19] MEDS: Divalproex 500 mg ER (ONCE DAILY formulation) PO SCH (21:37)
--- NOTE | 2016-12-20 04:36 | HP ---
CHIEF COMPLAINT: Syncopal attacks. HISTORY OF PRESENT ILLNESS: Mr. Simón Benson is a 36-year-old male with a past medical history of bipolar and noninsulin dependant diabetes mellitus, came to the emergency room following a syncopal attack at home witnessed by the mother. The patient is having diarrhea for the past few days. No vomiting. No fever. No chills. Denies any chest pain or shortness of breath. Mother states that he was walking to the kitchen then he suddenly collapsed. No head trauma. Denies any neck pain or back pain. No hematuria or hematochezia. No swelling of the legs. No chest pain. No palpitations. PAST MEDICAL HISTORY: History of seizures, diabetes mellitus type 2, history of eczema, anxiety, bipolar disorder, depression, schizophrenia, appendectomy, and cholecystectomy. ALLERGIES: THE PATIENT IS ALLERGIC WITH LITHIUM AND TOPIRAMATE. HOME MEDICATIONS: Depakote, benztropine, Cogentin, Lexapro, and Glucophage. REVIEW OF SYSTEMS: The patient is seen and examined on the bedside in the telemetry, looking comfortable. No nausea, vomiting, or diarrhea. No hematuria or hematochezia. No swelling of the legs. No chest pain. No palpitations. No headaches. No dizziness. PHYSICAL EXAMINATION VITAL SIGNS: Temperature 98.6, pulse 80, respiratory rate 20, blood pressure 116/70, and pulse oximetry 98%. HEENT: Head is normocephalic and atraumatic. Eyes; PERRLA. Extraocular muscles intact. Conjunctivae clear. Nose patent. Mucous membrane moist. NECK: Supple. No carotid bruits. No JVD or thyromegaly. CHEST: Bilateral symmetrical. HEART: S1 and S2 positive. LUNGS: Clear to auscultation. ABDOMEN: Soft. Bowel sounds positive. No organomegaly. EXTREMITIES: No edema. No cyanosis. NEUROLOGICAL: The patient is awake and alert. Moving all 4 extremities. No focal deficit. LABORATORY DATA: White blood cells 12.4, hemoglobin 14.3, hematocrit 41.9, and platelets 249. Sodium 141, potassium 4.2, BUN 11, creatinine 0.7, and glucose 107, 104, 110; AST 98, and ALT 161. ASSESSMENT AND PLAN: Mr. Simón Benson is a 36-year-old male with leukocytosis, abnormal liver function tests, came with syncopal attack, noninsulin dependent diabetes mellitus, bipolar, schizophrenia, and depression. The patient do not remember too much about the event and according to the Neurology syncopal attack looks like vasovagal versus orthostatic superimposed on dehydration, p.o. poor intake, and frequent diarrhea; may be he has chronic cerebral hypoperfusion. The patient got IV fluid in ER, blood pressure improved, and history of cholecystectomy. Reviewed Dr. Tone Panchal's notes. Cardiac/neurological work is in the progress. His CAT scan of the head done and reviewed. Stool sent for workup. No acute intraabdominal findings on CAT scan. No evidence of colitis. Seen by cloth measurer machine Dr. Coker. The patient has history of obesity. We will continue IV fluids. Check orthostatic. We will do TSH, hemoglobin A1c. Clinical Resource Director want to do echocardiography. So far no evidence of acute myocardial infarction or pulmonary event. GI and DVT prophylaxis. We will follow up. Dary Felipe MD
[2016-12-20 07:20] LABS: ALB/GLOB RATIO 1.4 (1.1-1.8); ALKALINE PHOSPHATASE 102 U/L (38-126); ALT/SGPT 197 U/L (7-56); AST/SGOT 125 U/L (17-59); BASO # 0.02 K/mm3 (0.0-2.0); BASO % 0.3 % (0.0-3.0); BILIRUBIN,TOTAL 0.4 mg/dL (0.2-1.3); BLOOD UREA NITROGEN 7 mg/dL (7-21); CARBON DIOXIDE 27 mmol/L (21-33); CHLORIDE 105 mmol/L (98-107); CHOLESTEROL 127 mg/dL (130-200); EOS # 0.2 (0.0-0.7); GFR AFRICAN-AMERICAN > 60; GLUCOSE,RANDOM 100 mg/dL (70-110); GRAN # 3.75 (1.4-6.5); GRAN % 55.8 % (50.0-68.0); HEMATOCRIT 38.4 % (42.0-52.0); LYMPH # 2.1 (1.2-3.4); LYMPH % 30.5 % (22.0-35.0); MAGNESIUM 2.1 mg/dL (1.7-2.2); MEAN CELL VOLUME 85.7 fl (80.0-105.0); MEAN CORPUSCULAR HEMOGLOBIN 28.3 pg (25.0-35.0); MEAN CORPUSCULAR HGB CONC 33.1 g/dl (31.0-37.0); MEAN PLATELET VOLUME 9.5 fl (7.0-11.0); MONO # 0.7 (0.1-0.6); MONO % 10.4 % (1.0-6.0); PHOSPHOROUS 4.1 mg/dL (2.5-4.5); POTASSIUM 4.1 mmol/L (3.6-5.0); RED CELL DISTRIBUTION WIDTH 14.4 % (11.5-14.5); SODIUM 141 mmol/L (132-148); TOTAL PROTEIN 6.4 g/dL (5.8-8.3); WHITE BLOOD COUNT 6.7 10^3/ul (4.5-11.0)
--- NOTE | 2016-12-20 07:42 | CP.PCM.PN ---
<Seun Levine - Last Filed: 12/20/16 13:58> Subjective - Date & Time of Evaluation Date of Evaluation: 12/20/16 Time of Evaluation: 07:05 - Subjective Subjective: GI progress note: Pt seen and examined at bedside. No acute events overnight. Pt states that his diarrhea has resolved with no episodes yesterday. He denies any abd pain, nausea or vomiting. Denies any more syncopal episodes. 12 Point ROS performed and negative other than stated above. Objective - Vital Signs/Intake and Output Vital Signs (last 24 hours): Temp Pulse Resp BP Pulse Ox 98 F 77 20 136/87 98 12/20/16 06:00 12/20/16 06:00 12/20/16 06:00 12/20/16 06:00 12/20/16 06:00 Intake and Output: 12/20/16 12/20/16 06:59 18:59 Intake Total 603 Balance 603 - Medications Medications: Current Medications Benztropine Mesylate (Cogentin) 2 mg PO DAILY [facility] Last Admin: 12/19/16 11:52 Dose: 2 mg Divalproex Sodium (Depakote Er(Once Daily)) 500 mg PO HS [facility] PRN Reason: Protocol Last Admin: 12/19/16 21:37 Dose: 500 mg Escitalopram Oxalate (Lexapro) 40 mg PO DAILY [facility] Last Admin: 12/19/16 11:48 Dose: 40 mg Famotidine (Pepcid) 40 mg PO HS [facility] Last Admin: 12/19/16 21:37 Dose: 40 mg Sodium Chloride (Sodium Chloride 0.9%) 1,000 mls @ 50 mls/hr IV .Q20H ANGELO Stop: 12/20/16 23:59 Last Admin: 12/19/16 19:21 Dose: 50 mls/hr Insulin Human Regular (Humulin R Low) 0 units SC ACHS ANG[facility] PRN Reason: Protocol Last Admin: 12/19/16 21:53 Dose: Not Given Metformin HCl (Glucophage) 1,000 mg PO HS [facility] Last Admin: 12/19/16 21:38 Dose: Not Given - Labs Labs: 12/20/16 06:15 12/20/16 06:15 PT 10.2 Seconds (9.9-11.8) 12/18/16 22:00 INR 0.94 (0.93-1.08) 12/18/16 22:00 APTT 26.0 Seconds (23.7-30.8) 12/18/16 22:00 - Constitutional Appears: No Acute Distress - Head Exam Head Exam: ATRAUMATIC, NORMOCEPHALIC - Eye Exam Eye Exam: EOMI, PERRL - ENT Exam ENT Exam: Mucous Membranes Moist - Respiratory Exam Respiratory Exam: absent: Rales, Rhonchi, Wheezes - Cardiovascular Exam Cardiovascular Exam: REGULAR RHYTHM, +S1, +S2 - GI/Abdominal Exam GI & Abdominal Exam: Soft. absent: Distended, Tenderness - Extremities Exam Extremities Exam: absent: Calf Tenderness, Pedal Edema - Neurological Exam Neurological Exam: Alert, Awake, Oriented x3 - Psychiatric Exam Psychiatric exam: Normal Affect, Normal Mood - Skin Skin Exam: Dry, Intact, Warm Assessment and Plan - Assessment and Plan (Free Text) Assessment: 36 M with pmh of schizophrenia, bipolar, and depression presents following 5 days of diarrhea and a syncopal episode. Diarrhea has since resolved. - CT Abd & Pelvis with IV contrast - was unremarkable - Heart healthy diet as tolerated - Follow up with stool infectious work up - IV fluids - NS 50ml/hr - Cont Pepcid 40mg HS - Medical management as per primary team - F/u cardiology work up - Avoid medication which will exacerbate diarrhea Case and plan was reviewed and discussed in detail with GI team. <Medardo Lundberg - Last Filed: 12/20/16 19:32> Objective - Vital Signs/Intake and Output Vital Signs (last 24 hours): Temp Pulse Resp BP Pulse Ox 98.7 F 57 L 20 105/62 97 12/20/16 16:31 12/20/16 16:31 12/20/16 16:31 12/20/16 16:31 12/20/16 16:31 - Medications Medications: Current Medications Benztropine Mesylate (Cogentin) 2 mg PO DAILY [facility] Last Admin: 12/20/16 09:12 Dose: 2 mg Divalproex Sodium (Depakote Er(Once Daily)) [address] [facility] PRN Reason: Protocol Last Admin: 12/19/16 21:37 Dose: 500 mg Escitalopram Oxalate (Lexapro) 40 mg PO DAILY [facility] Last Admin: 12/20/16 09:13 Dose: 40 mg Famotidine (Pepcid) 40 mg PO HS [facility] Last Admin: 12/19/16 21:37 Dose: 40 mg Sodium Chloride (Sodium Chloride 0.9%) 1,000 mls @ 50 mls/hr IV .Q20H ANGELO Stop: 12/20/16 23:59 Last Admin: 12/20/16 15:00 Dose: Not Given Insulin Human Regular (Humulin R Low) 0 units SC ACHS ANG[facility] PRN Reason: Protocol Last Admin: 12/20/16 16:46 Dose: Not Given Metformin HCl (Glucophage) 1,000 mg PO HS [facility] Last Admin: 12/19/16 21:38 Dose: Not Given - Labs Labs: 12/20/16 06:15 12/20/16 06:15 PT 10.2 Seconds (9.9-11.8) 12/18/16 22:00 INR 0.94 (0.93-1.08) 12/18/16 22:00 APTT 26.0 Seconds (23.7-30.8) 12/18/16 22:00 Attending/Attestation - Attestation I have personally seen and examined this patient.: Yes I have fully participated in the care of the patient.: Yes I have reviewed all pertinent clinical information, including history, physical exam and plan: Yes Notes (Text): 12/20/16 19:30 36 year old male with h/o psychiatric disease asdmitted with syncope, also with diarrhea, now resolved. 1. Acute diarrhea Plan: -possible viral gastro -symptoms resolved -CT unremarkable -diet as tolerated -will sign off
[2016-12-20] MEDS: Insulin Reg-LOW-Coverage SC SCH ×4 (07:46→23:45)
[2016-12-20] MEDS: Sodium Chloride 0.9% 1,000 ML IV SCH (15:00)
--- NOTE | 2016-12-20 15:07 | US ---
HISTORY: elevated LFTs COMPARISON: None. TECHNIQUE: Sonographic evaluation of the abdomen. FINDINGS: LIVER: Measures 16.8 cm. Diffusely increased echogenicity of the liver parenchyma. Consistent with fatty infiltration. No mass. No biliary ductal dilatation. Smooth contour. Portal vein patent. GALLBLADDER: Status post cholecystectomy COMMON BILE DUCT: Measures 4 mm. No stones. No dilatation. PANCREAS: Unremarkable as visualized. No mass. No ductal dilatation. RIGHT KIDNEY: Measures 13.8cm. Normal echogenicity. No calculus, mass, or hydronephrosis. LEFT KIDNEY: Measures 12.6cm. Normal echogenicity. No calculus, mass, or hydronephrosis. SPLEEN: Normal in size and contour. No mass. AORTA: No aneurysmal dilatation. IVC: Unremarkable. OTHER FINDINGS: None. IMPRESSION: Fatty liver. Status post cholecystectomy. Otherwise unremarkable examination.
--- NOTE | 2016-12-20 18:09 | PN ---
DATE: 12/20/2016 REASON FOR CONSULTATION: Syncope and cardiac evaluation. SUBJECTIVE: The patient is sitting in the bed. Denies any chest pain, shortness of breath or any palpitation. OBJECTIVE: GENERAL: Not in apparent distress, sitting in the bed, feels much better. VITAL SIGNS: Temperature is afebrile, heart rate 59, blood pressure 104/60. At 5:00, the patient had orthostatic hypotension, was checked found to be lying 136/87, sitting 151 and standing 131. No evidence of orthostatic hypotension. HEENT: PERRLA. Extraocular muscles intact. NECK: Supple. No carotid bruits. No thyromegaly. CHEST: Clear to auscultation. HEART: S1 and S2 regular. ABDOMEN: Soft. EXTREMITIES: Clubbing and cyanosis negative. LABORATORY DATA: Blood workup; 6.7, hemoglobin 12.6, hematocrit 38.4 and platelet count 210. Chemistry shows sodium 141, potassium 4.1, chloride , anion gap of 13, BUN 7, creatinine 0.7. AST 1000, ALT 197. Total cholesterol 127, LDL 51 and HDL 40. TSH 2.453. IMPRESSION: A 36-year-old morbidly obese male with body mass index of 40 kg/meter square who has history of bipolar depression, on psych medication admitted after syncope, most likely related to dehydration and orthostatic hypotension. The patient was given IV fluid. The patient responded with no evidence of further orthostatic hypotension. We will get echo to assess left ventricular function to rule out any structural heart disease. We will discharge telemetry. Continue IV fluid tonight. We will follow with you. Thank you Dr. Felipe for providing the opportunity in taking care of the patient. Michelle Coekr MD
--- NOTE | 2016-12-20 19:47 | CARD ---
APPROVED REPORT EXAM: Two-dimensional and M-mode echocardiogram with Doppler and color Doppler. INDICATION Syncope 2D DIMENSIONS Left Atrium (2D)4.6 (1.6-4.0cm)IVSd0.9 (0.7-1.1cm) LVDd5.2 (3.9-5.9cm)PWd1.1 (0.7-1.1cm) LVDs3.6 (2.5-4.0cm)FS (%) 30.4 % LVEF (%)57.5 (>50%) M-Mode DIMENSIONS Aortic Root3.20 (2.2-3.7cm)Aortic Cusp Exc.2.20 (1.5-2.0cm) Aortic Valve AoV Peak Lywhlyna436.0cm/Dileep Peak GR.9mmHg Mitral Valve MV E Hbpvxnhn40.2cm/sMV A Jpruizlk11.7cm/sE/A ratio1.5 TDI Lateral E' Peak V14.40cm/sMedial E' Peak V11.00cm/sE/Lateral E'6.5 E/Medial E'8.5 Pulmonary Valve PV Peak Ymmprwlu90.4cm/sPV Peak Grad.2mmHg Tricuspid Valve TR Peak Ndkhvkpg260rp/sRAP JLCQETVE88ccWwKG Peak Gr.21mmHg SVXN95ccMn LEFT VENTRICLE The left ventricle is normal size. There is normal left ventricular wall thickness. The left ventricular function is normal.EF-55-60% There is normal LV segmental wall motion. The left ventricular diastolic function is normal. No left ventricle thrombus noted on this study. There is no ventricular septal defect visualized. There is no left ventricular aneurysm. There is no mass noted in the left ventricle. RIGHT VENTRICLE The right ventricle is mildly dilated. There is normal right ventricular wall thickness. The right ventricular systolic function is normal. ATRIA The left atrium is mildly dilated. The right atrium is mildly dilated. The interatrial septum is intact with no evidence for an atrial septal defect. AORTIC VALVE The aortic valve is thickened but opens well. No aortic regurgitation is present. There is no aortic valvular stenosis. There is no aortic valvular vegetation. MITRAL VALVE The mitral valve is thickened but opens well. Mitral regurgitation is mild. There is no mitral valve stenosis. There is no evidence of mitral valve prolapse. TRICUSPID VALVE The tricuspid valve leaflets are thickened , but open well. There is mild tricuspid regurgitation.RVSP-31 mmof hg. There is no tricuspid valve stenosis. There is no tricuspid valve prolapse or vegetation. PULMONIC VALVE The pulmonary valve is normal in structure. There is trace pulmonic valvular regurgitation. There is no pulmonic valvular stenosis. GREAT VESSELS The aortic root is normal in size. The ascending aorta is normal in size. The pulmonary artery is normal. The IVC is normal in size and collapses >50% with inspiration. PERICARDIAL EFFUSION There is no pleural effusion. Trivial PE <Conclusion> The left ventricle is normal size. There is normal left ventricular wall thickness. The left ventricular function is normal.EF-55-60% No aortic regurgitation is present. There is no aortic valvular stenosis. Mitral regurgitation is mild. There is mild tricuspid regurgitation.RVSP-31 mmof hg. The IVC is normal in size and collapses >50% with inspiration. Trivial PE, No vegetation or thrombus noted.
--- NOTE | 2016-12-20 22:06 | CON ---
HISTORY OF PRESENT ILLNESS: Shortly, the patient is a 36-year-old male with reported history of mental illness, most likely schizoaffective disorder, bipolar type. The patient has multiple admissions to the psychiatric inpatient unit. The patient was admitted on the medical side for evaluation of syncopal episode at home. Psych consult was called because the patient has mental illness history and elevated liver enzymes in order to figure out if it is related to Depakote consumption. The patient was seen and examined today. The patient is followed up by PACT team in the community and this field underwriter had the chance to talk to the therapist who is next to the patient, Katlin. After social media assistant form the PACT team, the patient was functioning well. He was trying to lose weight and syncopal episode could be related to the fact that the patient was not eating that well lately. The patient said that he is trying to lose weight and he is not eating intentionally and the patient wants to get healthy to be healthy and recently he lost 70 pounds for the past year. The patient denied being depressed, but being upset over this hospitalization. The patient does not want to be in the hospital. The patient denied that he wanted to kill himself. Denied thoughts of harming others. The patient denied that he is hearing voices or seeing things. Collateral information was obtained from the patient's mother who is next to the patient. The patient gave permission. As per mother, the patient was functioning well. At the same time, at times, the patient has a lot of obsessive-compulsive symptoms, but besides that the patient was doing just fine. PHYSICAL EXAMINATION: VITAL SIGNS: Reviewed. Temperature 98, pulse is 59, blood pressure 104/60, and respirations 20 and oxygen saturation is 98%. MEDICATIONS: Reviewed. The patient is on Cogentin 2 mg daily, Depakote 500 mg at the nighttime, Lexapro 40 mg daily, Pepcid 40 mg at the nighttime, Humulin, Glucophage and sodium chloride. LABORATORY DATA: Labs reviewed. WBC is 6.7, granulocytes level 2.725. Coagulation reviewed. Chemistry reviewed. AST and ALT is 125 and 197 respectively. Toxicology reviewed negative for any substance. Valproic acid is 12, which is low. Serology is negative for any substances. PAST PSYCHIATRIC HISTORY: Most recently, the patient was admitted to the psychiatric inpatient unit was on 2012 and the patient was on Depakote back then too. MENTAL STATUS EXAMINATION: The patient presented to be pale with some psychomotor retardation. Flat affect. Mood described "I am fine, but I am upset that I am in the hospital". Affect was constricted. Thought process is concrete. Thought content, the patient denied visual, auditory, or tactile hallucinations. Denied paranoid ideation. The patient denied thoughts of harming herself or others. Denied intent or plan. Insight and judgement are fair. Impulses are well controlled. IMPRESSION: As per history, the patient has schizoaffective disorder versus bipolar disorder. The patient also has diabetes, obesity, and as per history, metformin was increased recently which could contribute to the patient syncopal episode and it could give hypoglycemia. PLAN: Considering the fact that, the patient was Depakote since 2012 and based on the previous history, the patient never had elevated liver enzymes such as unlikely that is related to the Depakote. This field underwriter wants to followup for the patient and may be to figure out the other medications which could be given to the patient in order to avoid potential liver enzymes elevated. Collaterals were obtained from mother as well as PACT team, Katlin. We will followup and advise accordingly. In the meanwhile, continue current management. We will get back to you and should you have any questions give me a call back. Jaimie Canales MD
[2016-12-20] MEDS: Divalproex 500 mg ER (ONCE DAILY formulation) PO SCH (23:44)
--- NOTE | 2016-12-21 05:33 | PN ---
SUBJECTIVE: The patient is a 36-year-old male. The patient was seen and examined on the bedside. Mother was sitting on the bedside also. According to the patient, no more diarrhea, no episodes of nausea or vomiting, no abdominal pain, no more syncopal attack, no seizures, but liver functions are tending up, so we called consult with psychiatrist to review psych medications. PHYSICAL EXAMINATION: VITAL SIGNS: Temperature 98, pulse 77, respiratory rate 20, blood pressure 136/87. Pulse oxymetry of 98. HEENT: Head is normocephalic and atraumatic. Eyes, PERRLA. Extraocular muscles intact. Conjunctivae clear. Nose patent. Mucous membranes moist. NECK: Supple. No carotid bruit. No JVD. No thyromegaly. CHEST: Bilaterally symmetrical. HEART: S1 and S2 positive. LUNGS: Clear to auscultation. ABDOMEN: Soft. Bowel sounds positive. No organomegaly. EXTREMITIES: No edema. No cyanosis. NEUROLOGIC: The patient is awake and alert. Moving all four extremities. No focal deficits. MEDICATIONS: Cogentin, Depakote, Lexapro, Pepcid, niacin, insulin and Glucophage. LABORATORY DATA: White blood cells 6.7, hemoglobin 12.7, hematocrit 38.4 and platelets 210. Sodium 141, potassium 4.1, BUN 7, creatinine 0.7 and glucose 100. ASSESSMENT AND PLAN: The patient is a 36-year-old male with history of psychiatric disorder, admitted with syncopal attack, diarrhea, dehydration. Diarrhea resolved, maybe viral gastroenteritis. Diet as tolerated. GI notes reviewed. As per ultrasound, fatty liver, status post cholecystectomy, otherwise unremarkable examination. Seen by the lost charge card clerk, Dr. Coker. The patient has obesity; bipolar disorder, on psych medications; rule out orthostatic hypotension. The patient responded well to IV fluid. Dr. Coker discontinued the telemetry. The patient was seen by Dr. Jaimie Canales, psychiatrist. The patient has schizoaffective disorder; diabetes mellitus, getting metformin. The patient was on Depakote since [address]. Dr[address] Jaimie Canales wants to follow with the patient and liver function test to know what medication causes acute liver function test. Dr. Etienne spoke to the PACT team, Katlin. Gastrointestinal and deep venous thrombosis prophylaxis. Repeat labs. We will follow up. Dary Felipe MD
[2016-12-21 07:14] LABS: HEMATOCRIT 38.6 % (42.0-52.0); MEAN CELL VOLUME 85.2 fl (80.0-105.0); MEAN CORPUSCULAR HEMOGLOBIN 28.3 pg (25.0-35.0); MEAN CORPUSCULAR HGB CONC 33.2 g/dl (31.0-37.0); MEAN PLATELET VOLUME 9.7 fl (7.0-11.0); RED CELL DISTRIBUTION WIDTH 14.2 % (11.5-14.5); WHITE BLOOD COUNT 7.3 10^3/ul (4.5-11.0)
[2016-12-21 07:28] LABS: BLOOD UREA NITROGEN 8 mg/dL (7-21); CALCIUM 9.1 mg/dL (8.4-10.5); CARBON DIOXIDE 28 mmol/L (21-33); CHLORIDE 104 mmol/L (95-110); GFR AFRICAN-AMERICAN > 60; GLUCOSE,RANDOM 98 mg/dL (70-110); POTASSIUM 4.1 mmol/L (3.6-5.0); SODIUM 140 mmol/L (132-148)
[2016-12-21 07:34] LABS: IRON 37 ug/dL (45-180)
[2016-12-21] MEDS: Insulin Reg-LOW-Coverage SC SCH ×2 (08:03→12:30)
[2016-12-21 08:06] VITALS: BP 115/72; PULSE 65; RESP 20; TEMP 98; O2SAT 96
[2016-12-21 10:52] LABS: ALB/GLOB RATIO 1.3 (1.1-1.8); BILIRUBIN,DIRECT 0.3 mg/dL (0.0-0.4); BILIRUBIN,TOTAL 0.3 mg/dL (0.2-1.3); TOTAL PROTEIN 6.4 g/dL (5.8-8.3)
[2016-12-21 12:29] LABS: IMMUNOGLOBULIN G 760.4 mg/dL (700.0-1600.0); IMMUNOGLOBULIN M 86.5 mg/dL (40.0-230.0)
[2016-12-21 12:30] LABS: IMMUNOGLOBULIN A 83.9 mg/dL (70.0-400.0)
--- NOTE | 2016-12-21 17:49 | PN ---
DATE: REFERRING PHYSICIAN: Michelle Coker MD REASON FOR CONSULTATION: Followup syncope and cardiac evaluation, orthostatic hypotension. SUBJECTIVE: The patient denies any chest pain, shortness of breath. Denies any dizziness. OBJECTIVE: GENERAL: Not in apparent distress. Lying flat on the bed. Feeling much better. VITAL SIGNS: As follows: Temperature afebrile, heart rate 65 and blood pressure 115/72. HEENT: PERRLA. Extraocular muscles intact. NECK: Supple. No carotid bruits. No thyromegaly. CHEST: Clear to auscultation. HEART: S1 and S2 regular. ABDOMEN: Soft. EXTREMITIES: Clubbing and cyanosis negative. LABORATORY DATA: Blood workup as follows: WBC 7.2, hemoglobin 12.8, hematocrit 38.3 and platelet count 215. Chemistry shows sodium 141, potassium 4.2, chloride 104, carbon dioxide 28, BUN 8 and creatinine of 0.7. IMPRESSION: Obesity, body mass index 40.1. A 36-year-old male with past medical history significant for obesity with body mass index of 40 kg/meter square admitted after having 5 days of diarrhea episode, dehydrated and near syncopal episode, was orthostatic hypotension. IV fluid was given. The patient feels better. Echocardiogram done that shows no significant structural heart disease. The patient repeat blood pressure did not show any evidence of orthostatic hypotension. Echocardiogram shows the ejection fraction 55-60% mild mitral regurgitation, mild tricuspid regurgitation, RV systolic pressure of 31. RECOMMENDATION: Discontinue IV fluid. Continue antipsychotic medication. The patient is cleared from cardiac point of view to be discharge. No further cardiac workup is planned. Thank you Dr. Felipe for providing the opportunity in taking care of the patient, Kelley Gr. Michelle Coker MD
--- NOTE | 2016-12-22 00:58 | DS ---
CHIEF COMPLAINT: Syncopal attack. HISTORY OF PRESENT ILLNESS: The patient is a 36-year-old male, my private patient, history of bipolar, [id number] diabetes mellitus, came to the emergency room following syncopal attack at home, witnessed by mother. The patient was having diarrhea for the past couple of days. No fever. No chills. Mother states that he was just walking to the kitchen and he suddenly collapsed. He had no head trauma. We admitted the patient; did a CAT scan of the head; a CAT scan of the abdomen and pelvis; seen by community health advocate, Dr. Coker; psychiatrist, Dr. Jaimie Canales; Dr. Medardo Lundberg saw the patient because of abnormal liver function test. Improved, discharge home today. Follow up with primary care physician. Prescription of the medication given by nurse practitioner. PAST MEDICAL HISTORY: Seizures, diabetes mellitus, history of eczema, anxiety, bipolar, depression, schizophrenia, appendectomy and cholecystectomy. ALLERGIES: THE PATIENT IS ALLERGIC TO LITHIUM AND TOPIRAMATE. HOME MEDICATIONS: Reviewed by me. REVIEW OF SYSTEMS: The patient was seen and examined on the bedside, looking comfortable. No nausea, vomiting or diarrhea. No hematuria. No hematochezia. No swelling of the legs. No chest pain. No palpitation. No headache. No dizziness. PHYSICAL EXAMINATION: VITAL SIGNS: Temperature 98, pulse 65, blood pressure 116/72 and respiratory rate 20. HEENT: Head is normocephalic and atraumatic. Eyes, PERRLA. Extraocular muscles intact. Conjunctivae clear. Nose patent. Mucous membranes moist. NECK: Supple. No carotid bruits, JVD or thyromegaly. CHEST: Bilaterally symmetrical. HEART: S1 and S2 positive. LUNGS: Clear to auscultation. ABDOMEN: Soft. Bowel sounds positive. No organomegaly. EXTREMITIES: No edema. No cyanosis. NEUROLOGIC: The patient is awake and alert. Moving all 4 extremities. No focal deficits. LABORATORY DATA: White blood cell 7.3, hemoglobin 12.8, hematocrit 38.6, and platelets 215. Sodium 140, potassium 4.1, BUN 8, creatinine 0.7. AST 124, ALT 188, trending down; on admission, AST was 125, ALT was 197. ASSESSMENT AND PLAN: The patient is a 36-year-old male with leucocytosis, improved; anemia; hypoglycemia; abnormal liver function test. Hepatitis profile negative. Seen by the community health advocate, Dr. Coker. Has history of diarrhea, dehydration, near syncope episode versus orthostatic hypotension, IV fluid given, got better. Echocardiography was done, no significant structural heart disease as per community health advocate, no more orthostatic hypotension, ejection fraction 55% to 60%. Continue antipsychotic medication. Seen by the psychiatrist, Dr. Jaimie Canales. Gastrointestinal Dr. Batres. Seen by the neurologist. Seizures, schizophrenia, bipolar, depression, syncopal attack most likely due to vasovagal versus orthostatic superimposed on dehydration, poor intake, frequent diarrhea due to volume depletion status, maybe he has transient cerebral hypoperfusion. After getting bolus of NS, the patient improved, sent home. Follow up with primary care physician. Dary Felipe MD
--- NOTE | 2016-12-23 05:11 | PN ---
SUBJECTIVE: Shortly, the patient is a 36-year-old male with reported history of schizoaffective disorder. The patient was admitted on the medical side for syncopal episode, which could be related to the fact that the patient was trying to loose his weight and metformin was increased recently in dose. The patient also has elevated LFTs that is why this health underwriter was in hold. Medical team has impression that this is due to Depakote. The health underwriter tracked previous history. The patient was on that medication for at least since 2012 and never had elevated LFTs in the past, and at present moment this health underwriter doubt that this is due to Depakote. He says that no psychiatric complaints at the present moment. This health underwriter had a chance to discuss with therapist at [facility] team which is following the patient in the community. As per PAC Team the patient was doing very well. The patient was compliant with the medication and does not exceeded any psychotic symptoms or did not verbalize any thoughts of harming himself or others. Also, this health underwriter had a chance to talk to patient's mother who lives with the patient and as per mother the patient was doing very well and she has expressed no concerns at this time. VITAL SIGNS: This health underwriter reviewed the vital signs, seems to be stable. Temperature 98.0, pulse 65, blood pressure 115/72, respiration 20 and oxygen saturation is 96%. MEDICATIONS: Reviewed. The patient is on Cogentin, Depakote 500 mg at night and Lexapro 40 mg daily, Pepcid, Humulin and Glucophage. LABORATORY DATA: Labs are reviewed. AST and ALT still elevated at 124 and 188. Chemistry reviewed. Serology reviewed. MENTAL STATUS EXAMINATION: The patient Is alert and oriented, pleasant and cooperative, fair eye contact. Speech was underproductive, low volume. Mood described as "I'm okay. I want to go home." Affect today active. Mood congruent. Thought process concrete. Thought content, the patient denied visual, auditory or tactile hallucinations. Denied paranoid ideations. The patient denied thoughts of harming himself or others, denied intent or plan. Insight and judgment are fair. Impulses are well controlled. IMPRESSION AND PLAN: As per history, the patient has schizoaffective disorder versus bipolar disorder. The patient has syncopal episode. As per history the patient was trying to loose weight and metformin was increased in dose recently, it could be contributing to patient's syncopal episode. In regard to all elevated LFTs, this health underwriter doubt that this is due to Depakote because the patient was on that medication since 2012. This health underwriter offered the patient admission in order to try to discontinue Depakote and maybe to start Abilify or other mood stabilizer which is weight neutral. The patient declined that offer. The patient was advised to provide information about the LFTs' elevation. The patient verbalized understanding. The patient denied thoughts of harming himself or others, present to pose no imminent danger to self or others. The patient has [facility]up appointment [facility] and Dr. Peters. At the present moment the patient declined the offer to stay in the psychiatric inpatient unit in order to adjust medication and the patient does not meet the criteria for screening services. This health underwriter will sign off. Should they have any questions give me a call back. If the medical team feels that elevated LFT is due to Depakote it could be placed on hold and check LFTs in the future. Thank you very much for letting me participate in care of your patient. Should they have any questions, give me a call back. Jaimie Canales MD
[2016-12-23 12:42] LABS: LKM-1 Ab (IgG) <=20.0 U (<=20.0)
[2016-12-25 14:18] LABS: SMOOTH MUSCLE AB TITER 1:20 Titer (< 1:20)
== END 2016-12-21 17:49 | disposition home or self-care (01) | DRG 392 ==
LOC: ED 19:52 → ERH 23:16 → 2RSO 12-19 01:54 → OBSVTOIN 12-19 13:07 → 5RSO 12-20 21:33
PROVIDERS: ADMIT Internal Medicine; ATTEND Internal Medicine
DX: A08.4 Viral intestinal infection, unspecified (principal); E86.0 Dehydration; I95.1 Orthostatic hypotension; Z68.41 Body mass index [BMI] 40.0-44.9, adult; E11.649 Type 2 diabetes mellitus with hypoglycemia without coma; K76.0 Fatty (change of) liver, not elsewhere classified; G40.409 Other generalized epilepsy and epileptic syndromes, not intractable, without status epilepticus; I08.1 Rheumatic disorders of both mitral and tricuspid valves; F25.0 Schizoaffective disorder, bipolar type; Z79.84 Long term (current) use of oral hypoglycemic drugs